=== PATIENT | female | born 2000 | race Caucasian/White ===

== ENCOUNTER 2022-10-05 23:05 | Emergency (ER) | payer MEDICAID ==
[~2022-10-05] VITALS: Ht 170.2 cm; Wt 61.2 kg
--- NOTE | 2022-10-06 01:50 | NUR ---
Dr Magdaleno into eval patient in the triaged area due to no rooms available in the ER.
[2022-10-06] MEDS ORDERED: IV NS 1000 ML 1,000 ML IV ONE (02:00)
[2022-10-06 02:03] LABS: HEMATOCRIT 42.7 % (31.2-41.9); MEAN CORPUSCULAR HEMOGLOBIN 28.1 uug (24.7-32.8); MEAN CORPUSCULAR VOLUME 79.8 fL (75.5-95.3); PLATELET COUNT (AUTO) 158 K/uL (179-408)
[2022-10-06 02:15] LABS: CARBON DIOXIDE 27 mmol/L (21-32); CHLORIDE 101 mmol/L (98-107); CREATININE 0.6 mg/dL (0.6-1.3); GLUCOSE 125 mg/dL (74-106); POTASSIUM 3.7 mmol/L (3.5-5.1); UREA NITROGEN, BLOOD 11 mg/dL (7-18)
--- NOTE | 2022-10-06 02:15 | NUR ---
Patient refused to have hep lock or iv fluid at this time
[2022-10-06 02:25] LABS: ALANINE AMINOTRANSFERASE 16 U/L (14-59); ALKALINE PHOSPHATASE 43 U/L (50-136); ASPARTATE AMINOTRANSFERASE 10 U/L (15-37); BILIRUBIN,DIRECT 0.2 mg/dL (0.0-0.2); TOTAL PROTEIN, SERUM 8.3 g/dL (6.4-8.2)
[2022-10-06 02:30] LABS: THYROID STIMULATING HORMONE 1.441 mIU/mL (0.358-3.740)
[2022-10-06 02:32] LABS: *URINE HCG, QUAL NEGATIVE (NEGATIVE)
--- NOTE | 2022-10-06 02:54 | NUR ---
Patient placed in 4B at this time.
--- NOTE | 2022-10-06 03:59 | NUR ---
Dr. Magdaleno at bedside.
--- NOTE | 2022-10-06 04:18 | NUR ---
Patient discharged to home in stable condition. Written and verbal after care instructions given. Patient verbalizes understanding of instructions. Stressed follow up or return to ER for worsening s/s. Pt ambulated out of the ER with steady gait. All belongings with pt.
[2022-10-06 04:19] VITALS: BP 124/88
== END 2022-10-06 04:19 | disposition home or self-care (01) ==
LOC: ER 23:08
DX: M79.651 Pain in right thigh (principal); R42 Dizziness and giddiness; R11.0 Nausea; Z20.822 Contact with and (suspected) exposure to COVID-19; I45.10 Unspecified right bundle-branch block; D69.6 Thrombocytopenia, unspecified; F42.9 Obsessive-compulsive disorder, unspecified
CPT/HCPCS: 36415; 84443; 84484; 84703; 85025; 85730; 87400; 93005; A4663